=== PATIENT | female | born 1955 | race Hispanic/Latino ===

== ENCOUNTER 2018-09-27 10:00 | Observation (INO) | payer OTHER ==
[~2018-09-27] VITALS: Ht 162.6 cm; Wt 113.3 kg
[2018-09-27 11:52] VITALS: BP 139/59
--- NOTE | 2018-09-27 13:00 | NUR ---
NOTE MAGEN Edward [employer] NOTIFIED OF PROCEDURE AND NEEDED MATERIALS FOR SURGERY. ORDER FAXED TO MAGEN. PER MAGEN, SHE HAS RECEIVED THE FAXED ORDER.
[2018-09-27] MEDS ORDERED: METF-446 PO (14:08)
[2018-09-27] MEDS ORDERED: ASPI-555 PO (14:08)
[2018-09-27] MEDS ORDERED: FENO145T37 PO (14:08)
[2018-09-27] MEDS ORDERED: ESCI10TA54 PO (14:08)
[2018-09-27] MEDS ORDERED: GLIP5TAB11 PO (14:08)
[2018-09-27] MEDS ORDERED: LISI1TAB11 PO (14:08)
--- NOTE | 2018-09-27 14:23 | NUR ---
EKG EKG RESULT SHOWN TO DR. AGARWAL. NO FURTHER ORDERS. MAY PROCEED WITH PLANNED PROCEDURE.
[2018-09-28] VITALS (24 sets, daily range): BP systolic 101–156; BP diastolic 50–72
[2018-09-28] MEDS ORDERED: SODIUM CHLORIDE 0.9% 1000ML 1,000 ML IV ONE (07:08)
[2018-09-28] MEDS: CEFAZOLIN SODIUM 1 GM VIAL IVP ONE ×2 (07:13→11:00)
[2018-09-28] MEDS ORDERED: ROPIVACAINE 0.5% 5MG/ML 30ML IJ ONE (10:48)
[2018-09-28] MEDS ORDERED: MIDAZOLAM HCL 1 MG/ML 2ML VIAL ONE (10:51)
[2018-09-28] MEDS ORDERED: FENTANYL CITRATE PF 50 MCG/1 ML 5ML AMP IV ONE (10:51)
[2018-09-28] MEDS ORDERED: PROPOFOL 10 MG/ML 20ML VIAL IV ONE (10:51)
[2018-09-28] MEDS ORDERED: ROCURONIUM 10MG/1ML SYR 10 MG/ML ML ONE (10:58)
[2018-09-28] MEDS ORDERED: EPHEDRINE SULFATE 50 MG/ML AMPULE ONE (11:40)
[2018-09-28] MEDS ORDERED: GLYCOPYRROLATE 1 MG/5 ML SYRINGE ONE (11:42)
[2018-09-28] MEDS ORDERED: NEOSTIGMINE 5MG/5ML SYR IV ONE (12:06)
[2018-09-28] MEDS ORDERED: FENTANYL CITRATE PF 50 MCG/1 ML 2ML VIAL ONE (12:59)
[2018-09-28 13:23] LABS: HEMATOCRIT 34.6 % (36-48)
--- NOTE | 2018-09-28 13:46 | NUR ---
POST SURGERY PATIENT RECEIVED FROM PACU VIA HOSPITAL BED IN STABLE CONDITION. PATIENT IS VERY SLEEPY BUT IS ABLE TO ANSWER QUESTIONS. LEFT ARM HAS AN ABDUCTOR PILLOW IN PLACE. DRESSING IS CLEAN AND DRY. IV TO RIGHT HAND IS PATENT WITH NO REDNESS OR SWELLING NOTED TO SITE. SHE HAS BEEN ORIENTED TO ROOM AND USE OF CALL LIGHT. NO FAMILY IS PRESENT AT THIS TIME. POST OP VITAL SIGNS HAVE BEEN INITIATED. WILL CONTINUE TO MONITOR.
[2018-09-28] MEDS ORDERED: LACTATED RINGERS 1000ML 1,000 ML IV ONE (14:12)
[2018-09-28] MEDS ORDERED: MAGNESIUM HYDROXIDE 30 ML/UDCUP PO PRN (14:45)
[2018-09-28] MEDS ORDERED: LACTATED RINGERS 1000ML 1,000 ML IV SCH (14:45)
[2018-09-28] MEDS ORDERED: MORPHINE SULFATE 10 MG/ML 1ML SYG IM PRN (14:45)
[2018-09-28] MEDS ORDERED: PROMETHAZINE HCL 25 MG/ML 1ML AMPULE IM PRN (14:45)
[2018-09-28] MEDS ORDERED: BISACODYL 10 MG SUPP.RECT RC PRN (14:45)
[2018-09-28] MEDS ORDERED: HYDROCODONE/ACETAMINOPHEN 5/325 MG TAB PO PRN (15:30)
[2018-09-28] MEDS: HYDROCODONE/ACETAMINOPHEN 5/325 MG TAB PO PRN ×2 (16:16→22:22)
[2018-09-28 17:43] LABS: BASOPHILS % (AUTO) 0.4 % (0.0-5.0); HEMATOCRIT 35.5 % (36-48); LYMPHOCYTES % (AUTO) 9.3 % (21.0-51.0); MEAN CORPUSCULAR HGB CONC 33.9 g/dL (32.0-36.0); MEAN CORPUSCULAR VOLUME 85.6 fL (79-99); MONOCYTES % (AUTO) 3.1 % (3.0-13.0); NEUTROPHILS % (AUTO) 87.2 % (40.0-77.0); PLATELET COUNT (AUTO) 179 K/uL (130-400); RED BLOOD CELL COUNT(AUTO) 4.14 MIL/uL (4.00-5.50); WHITE BLOOD COUNT (AUTO) 11.3 K/uL (4.8-10.8)
[2018-09-28 17:59] LABS: ALBUMIN 3.6 g/dL (3.5-5.0); BILIRUBIN,TOTAL 0.8 mg/dL (0.2-1.0); CREATININE 0.7 mg/dL (0.5-1.5); POTASSIUM 4.2 mmol/L (3.5-5.1); TOTAL PROTEIN, SERUM 6.3 g/dL (6.0-8.3)
[2018-09-28] MEDS: CEFAZOLIN SODIUM 1 GM VIAL IVP SCH (18:42)
[2018-09-28] MEDS: MORPHINE SULFATE 2 MG/ML 1ML SYG IVP PRN (18:43)
[2018-09-28] MEDS ORDERED: GLUCAGON 1MG KIT 1 MG ML IM PRN (18:45)
[2018-09-28] MEDS ORDERED: DEXTROSE 50%-WATER 50 ML DISP.SYRIN IV PRN (18:45)
[2018-09-28] MEDS: METFORMIN HCL 500 MG TABLET PO SCH (20:47)
[2018-09-28] MEDS: GLIPIZIDE 5 MG TABLET PO SCH (20:47)
[2018-09-28] MEDS ORDERED: FENOFIBRATE NANOCRYSTALLIZED 145 MG TAB PO SCH (21:00)
[2018-09-28] MEDS: INSULIN HUMULIN R 100 UNIT/ML 3ML SQ SCH (21:00)
[2018-09-29] VITALS: BP 108/74
[2018-09-29] MEDS ORDERED: HYDROMORPHONE 1 MG/1 ML AMP ONE (00:50)
[2018-09-29] MEDS ORDERED: HYDROMORPHONE 1 MG/1 ML AMP IVP SCH (01:00)
[2018-09-29 01:09] LABS: HEMATOCRIT 37.2 % (36-48)
[2018-09-29] MEDS: CEFAZOLIN SODIUM 1 GM VIAL IVP SCH ×2 (01:56→11:04)
[2018-09-29 04:00] VITALS: BP 127/69
[2018-09-29] MEDS: HYDROCODONE/ACETAMINOPHEN 5/325 MG TAB PO PRN (05:54)
[2018-09-29] MEDS: INSULIN HUMULIN R 100 UNIT/ML 3ML SQ SCH ×2 (05:58→11:30)
[2018-09-29 06:45] LABS: HEMATOCRIT 34.2 % (36-48)
[2018-09-29 08:00] VITALS: BP_SYST 122; BP_SYST 144; BP_DIAS 52; BP_DIAS 64
[2018-09-29] MEDS ORDERED: LISINOPRIL 40 MG TABLET PO SCH (09:00)
[2018-09-29] MEDS ORDERED: POLYETHYLENE GLYCOL 3350 17 GM POWD.PACK PO SCH (09:00)
[2018-09-29] MEDS: HYDROCHLOROTHIAZIDE 25 MG TABLET PO SCH ×2 (09:00→11:05)
[2018-09-29] MEDS ORDERED: Escitalopram Oxalate 10 MG PO SCH (09:00)
[2018-09-29] MEDS ORDERED: ASPIRIN 81MG TAB.CHEW PO SCH (09:00)
[2018-09-29 11:00] VITALS: BP 142/75
[2018-09-29] MEDS: METFORMIN HCL 500 MG TABLET PO SCH (11:06)
[2018-09-29] MEDS: GLIPIZIDE 5 MG TABLET PO SCH (11:06)
[2018-09-29] MEDS: MORPHINE SULFATE 2 MG/ML 1ML SYG IVP PRN (11:18)
--- NOTE | 2018-09-29 12:27 | NUR ---
CM EVAL Order received for CM to set up PT at MD office. Informed bedside nurse Evelin that construction secretary can set that up when patient is discharged. Verbalized understanding. CD
[2018-09-29 16:00] VITALS: BP 143/74
[2018-09-29] MEDS ORDERED: APIX5TAB PO (16:05)
[2018-09-29] MEDS ORDERED: TYL3 PO (16:06)
== END 2018-09-29 18:03 | disposition home or self-care (01) ==
LOC: EDSTATUS 10:00 → DAHIP 09-28 06:30 → 4BH 09-28 13:18
DX: M75.42 Impingement syndrome of left shoulder (principal); C50.919 Malignant neoplasm of unspecified site of unspecified female breast; M25.812 Other specified joint disorders, left shoulder; E66.9 Obesity, unspecified; E78.2 Mixed hyperlipidemia; I11.9 Hypertensive heart disease without heart failure; F41.9 Anxiety disorder, unspecified; I25.10 Atherosclerotic heart disease of native coronary artery without angina pectoris; J18.9 Pneumonia, unspecified organism; M19.90 Unspecified osteoarthritis, unspecified site; M75.00 Adhesive capsulitis of unspecified shoulder; X58.XXXA Exposure to other specified factors, initial encounter; Y93.89 Activity, other specified; Y92.89 Other specified places as the place of occurrence of the external cause; Y99.0 Civilian activity done for income or pay
CPT/HCPCS: 23120; 23130; 23412; 24110; 36415 ×2; 80053; 82948 ×8; 85014 ×3; 85018 ×3; 85025; 88304; 88311; 94760; 96374; 96375 ×2; 96376; 97116 ×2; 97161; A4218 ×3; A4606; A4930; A6223; C1713; G0378 ×37; G8978; G8979; G8980; G8981; G8982; G8983; J0690 ×4; J1170; J1815; J2250; J2704; J2710; J2795; J3010 ×2; J3490 ×2; J7030 ×2; J7120